=== PATIENT | female | born 1985 | race Caucasian/White ===

== ENCOUNTER 2017-08-02 00:10 | Emergency (ER) | payer OTHER ==
[2017-08-02 00:45] LABS: Urine Blood 1+ (NEG); Urine Glucose TRACE (NEG); Urine Protein 1+ (NEG)
[2017-08-02 01:01] LABS: Absolute Lymphocytes (CBC) 1.8 K/uL (0.7-4.9); Absolute Monocytes 0.9 K/uL (0.1-1.3); Absolute Neutrophil 8.1 K/uL (1.8-8.0); Basophils % 0.4 % (0-1.3); Hematocrit 40.5 % (36.0-45.0); Lymphocytes % 16.7 % (15.3-44.8); MCH 29.9 pg (27.0-35.0); MCV 90.6 fL (80-100); MPV 9.1 fL (7.6-11.3); Monocytes % 8.5 % (3.3-12.3); RBC Red Blood Cell Count 4.47 M/uL (3.86-4.86)
[2017-08-02 01:07] LABS: Potassium 3.9 mEq/L (3.6-5.0)
[2017-08-02 01:13] LABS: Urine Culture Reflex Order REFLEXED
[2017-08-02] MEDS ORDERED: CEFTRIAXONE/SWI 1gm 1 GM/10 ML SYR ONE (01:13)
[2017-08-02] MEDS ORDERED: ONDANSETRON 4 MG/2 ML VIAL ONE (01:13)
[2017-08-02] MEDS ORDERED: KETOROLAC 30 MG/ML INJ ONE (01:13)
[2017-08-02] MEDS ORDERED: MORPHINE 4 MG/ML SYR ONE (01:13)
[2017-08-02 01:14] LABS: Albumin 4.4 g/dL (3.2-5.5); Bilirubin Direct 0.1 mg/dL (0-0.2); Bilirubin Total 0.6 mg/dL (0.3-1.2); Protein, Total 7.3 g/dL (6.0-8.3)
[2017-08-02] MEDS ORDERED: NA CHLORIDE 0.9% 1,000 ML ONE (01:14)
[2017-08-02 01:17] LABS: Urine Bacteria <20 /HPF (<20)
--- NOTE | 2017-08-02 01:44 | ER ---
Nurse's Notes [facility] Name: Meghan Osorio Age: 32 yrs Sex: Female : 1985 Arrival Date: 08/02/2017 Time: 00:14 Bed 5 Private MD: Diagnosis: Cystitis;Hydronephrosis with renal and ureteral calculous obstruction Presentation: 08/02 00:23 Presenting complaint: Patient states: that at 1800 she started to have right lower back fc pain that radiates around to her right lower abd. Also having decreased urine output. Transition of care: patient was not received from another setting of care. Onset of symptoms was August 01, 2017 at 18:00. Initial Sepsis Screen: Does the patient meet any 2 criteria? No. Patient's initial sepsis screen is negative. Does the patient have a suspected source of infection? No. Patient's initial sepsis screen is negative. Care prior to arrival: Medication(s) given: AZO at 1900. 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 - Social history:: Smoking status: Patient/guardian denies using tobacco, Patient/guardian denies using alcohol, street drugs. - Family history:: not pertinent. Screenin:26 Abuse screen: Denies threats or abuse. Nutritional screening: No deficits noted. fc Tuberculosis screening: No symptoms or risk factors identified. Fall Risk None identified. Assessment: 00:30 General: Appears in no apparent distress. uncomfortable, Behavior is calm, cooperative, tl2 appropriate for age. General: pt states that she has been taking AZOs today. Pain: Complains of pain in right flank Pain radiates to right lower quadrant Pain currently is 6 out of 10 on a pain scale. Quality of pain is described as sharp. Neuro: Level of Consciousness is awake, alert, obeys commands, Oriented to person, place, time, situation. Cardiovascular: Denies chest pain. Respiratory: Airway is patent Respiratory effort is even, unlabored, Respiratory pattern is regular, symmetrical. GI: No signs and/or symptoms were reported involving the gastrointestinal system. : Denies burning with urination, urinary frequency. Derm: Skin is pink, warm \T\ dry. 01:20 Reassessment: Patient appears in no apparent distress at this time. Patient and/or tl2 family updated on plan of care and expected duration. Pain level reassessed. Patient is alert, oriented x 3, equal unlabored respirations, skin warm/dry/pink. 02:03 Reassessment: Patient appears in no apparent distress at this time. Patient and/or tl2 family updated on plan of care and expected duration. Pain level reassessed. Patient is alert, oriented x 3, equal unlabored respirations, skin warm/dry/pink. Pt states pain has improved, rates pain at 3 dull pain in back. MD will come speak to pt before discharge Patient states feeling better. 02:19 Reassessment: Patient appears in no apparent distress at this time. Patient and/or tl2 family updated on plan of care and expected duration. Pain level reassessed. Patient is alert, oriented x 3, equal unlabored respirations, skin warm/dry/pink. Pt verbalized understanding of discharge instructions, need for follow up and prescription usage. Vital Signs: 00:25 BP 125 / 76; Pulse 86; Resp 18; Temp 98.2(O); Pulse Ox 99% on R/A; Weight 110.68 kg fc (R); Height 5 ft. 2 in. (157.48 cm) (R); Pain 3/10; 01:20 BP 115 / 70; Pulse 81; Resp 20; Pulse Ox 99% on R/A; tl2 02:03 BP 115 / 67; Pulse 60; Resp 18; Pulse Ox 100% on R/A; Pain 3/10; tl2 00:25 Body Mass Index 44.63 (110.68 kg, 157.48 cm) ED Course: 00:14 Patient arrived in ED. am2 00:25 Triage completed. fc 00:25 Arm band placed on Patient placed in an exam room, on a stretcher. fc 00:26 Patient has correct armband on for positive identification. Placed in gown. Bed in low fc position. Call light in reach. 00:26 No provider procedures requiring assistance completed. fc 00:27 David Goldman MD is Attending Physician. michael 00:28 Halle Blevins RN is Primary Nurse. tl2 00:30 Inserted saline lock: 20 gauge in left antecubital area, using aseptic technique. Blood tl2 collected. 00:49 CT Stone Protocol In Process Unspecified. EDMS 01:43 Karli Pereira MD is Referral Physician. michael 01:48 CT completed. Patient tolerated procedure well. Patient moved to ME via wheelchair. Patient moved back from ME. 02:19 IV discontinued, intact, bleeding controlled, No redness/swelling at site. Pressure tl2 dressing applied. Administered Medications: 01:18 Drug: Rocephin - (cefTRIAXone) 1 grams Route: IVPB; Infused Over: 30 mins; Site: left tl2 antecubital; 02:03 Follow up: IV Status: Completed infusion tl2 01:18 Drug: TORadol 30 mg Route: IVP; Site: left antecubital; tl2 02:03 Follow up: Response: No adverse reaction; Pain is decreased tl2 01:19 Drug: morphine 4 mg Route: IVP; Rate: bolus; Infused Over: 2 mins; Site: left tl2 antecubital; 02:03 Follow up: Response: No adverse reaction; Pain is decreased tl2 01:19 Drug: Zofran 4 mg Route: IVP; Rate: bolus; Infused Over: 2 mins; Site: left antecubital;tl2 02:03 Follow up: Response: No adverse reaction tl2 01:19 Drug: NS 0.9% 1000 ml Route: IV; Rate: 1 bolus; Site: left antecubital; tl2 02:03 Follow up: IV Status: Completed infusion; IV Intake: 1000ml tl2 02:02 Drug: Flomax 0.4 mg Route: PO; tl2 02:21 Follow up: Response: No adverse reaction tl2 02:03 Drug: Cipro 500 mg Route: PO; tl2 02:21 Follow up: Response: No adverse reaction tl2 Intake: 02:03 IV: 1000ml; Total: 1000ml. tl2 Outcome: 01:43 Discharge ordered by . michael 02:19 Discharged to home ambulatory, with family. tl2 02:19 Condition: stable 02:19 Discharge instructions given to patient, Instructed on discharge instructions, follow up and referral plans. medication usage, Demonstrated understanding of instructions, follow-up care, medications, Prescriptions given X 4. 02:31 Patient left the ED. tl2 Signatures: Dispatcher [employer] EDDavid Gustafson MD MD cha Hagler, Ervin eh Chretien, Felicia RN RN Halle Blevins RN RN tl2 Jessica Espitia
--- NOTE | 2017-08-02 01:44 | EDPHYS ---
Physician Documentation [facility] Name: Meghan Osorio Age: 32 yrs Sex: Female : 1985 Arrival Date: 08/02/2017 Time: 00:14 Bed 5 Private MD: ED Physician David Goldman HPI: 08/02 00:43 This 32 yrs old Female presents to ER via Ambulatory with complaints of Flank michael Pain - right side rad to back. 00:43 The patient complains of pain in the right mid back and right low back. The pain michael radiates to the right mid back and right low back. Onset: The symptoms/episode began/occurred yesterday. Modifying factors: The symptoms are alleviated by nothing. the symptoms are aggravated by nothing. Associated signs and symptoms: The patient has no apparent associated signs or symptoms. Severity of pain: At its worst the pain was moderate in the emergency department the pain is unchanged. The patient has not experienced similar symptoms in the past. 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 - Social history:: Smoking status: Patient/guardian denies using tobacco, Patient/guardian denies using alcohol, street drugs. - Family history:: not pertinent. ROS: 00:43 Constitutional: Negative for fever, chills, and weight loss, Eyes: Negative for injury, michael pain, redness, and discharge, ENT: Negative for injury, pain, and discharge, Neck: Negative for injury, pain, and swelling, Cardiovascular: Negative for chest pain, palpitations, and edema, Respiratory: Negative for shortness of breath, cough, wheezing, and pleuritic chest pain, Back: Negative for injury and pain, : Negative for injury, bleeding, discharge, and swelling, MS/Extremity: Negative for injury and deformity, Skin: Negative for injury, rash, and discoloration, Neuro: Negative for headache, weakness, numbness, tingling, and seizure, Psych: Negative for depression, anxiety, suicide ideation, homicidal ideation, and hallucinations, Allergy/Immunology: Negative for hives, rash, and allergies, Endocrine: Negative for neck swelling, polydipsia, polyuria, polyphagia, and marked weight changes, Hematologic/Lymphatic: Negative for swollen nodes, abnormal bleeding, and unusual bruising. 00:43 Abdomen/GI: Positive for abdominal pain, of the posterior aspect of right lateral abdomen and right lower quadrant. Exam: 00:43 Constitutional: This is a well developed, well nourished patient who is awake, alert, michael and in no acute distress. Head/Face: Normocephalic, atraumatic. Eyes: Pupils equal round and reactive to light, extra-ocular motions intact. Lids and lashes normal. Conjunctiva and sclera are non-icteric and not injected. Cornea within normal limits. Periorbital areas with no swelling, redness, or edema. ENT: Nares patent. No nasal discharge, no septal abnormalities noted. Tympanic membranes are normal and external auditory canals are clear. Oropharynx with no redness, swelling, or masses, exudates, or evidence of obstruction, uvula midline. Mucous membranes moist. Neck: Trachea midline, no thyromegaly or masses palpated, and no cervical lymphadenopathy. Supple, full range of motion without nuchal rigidity, or vertebral point tenderness. No Meningismus. Chest/axilla: Normal chest wall appearance and motion. Nontender with no deformity. No lesions are appreciated. Cardiovascular: Regular rate and rhythm with a normal S1 and S2. No gallops, murmurs, or rubs. Normal PMI, no JVD. No pulse deficits. Respiratory: Lungs have equal breath sounds bilaterally, clear to auscultation and percussion. No rales, rhonchi or wheezes noted. No increased work of breathing, no retractions or nasal flaring. Abdomen/GI: Soft, non-tender, with normal bowel sounds. No distension or tympany. No guarding or rebound. No evidence of tenderness throughout. Back: No spinal tenderness. No costovertebral tenderness. Full range of motion. Skin: Warm, dry with normal turgor. Normal color with no rashes, no lesions, and no evidence of cellulitis. MS/ Extremity: Pulses equal, no cyanosis. Neurovascular intact. Full, normal range of motion. Neuro: Awake and alert, GCS 15, oriented to person, place, time, and situation. Cranial nerves II-XII grossly intact. Motor strength 5/5 in all extremities. Sensory grossly intact. Cerebellar exam normal. Normal gait. Psych: Awake, alert, with orientation to person, place and time. Behavior, mood, and affect are within normal limits. Vital Signs: 00:25 BP 125 / 76; Pulse 86; Resp 18; Temp 98.2(O); Pulse Ox 99% on R/A; Weight 110.68 kg (R); Height 5 ft. 2 in. (157.48 cm) (R); Pain 3/10; 01:20 BP 115 / 70; Pulse 81; Resp 20; Pulse Ox 99% on R/A; tl2 02:03 BP 115 / 67; Pulse 60; Resp 18; Pulse Ox 100% on R/A; Pain 3/10; tl2 00:25 Body Mass Index 44.63 (110.68 kg, 157.48 cm) MDM: 00:27 Patient medically screened. [facility] 08/02 00:27 Order name: Amylase, Serum; Complete Time: 08/02 00:27 Order name: Basic Metabolic Panel; Complete Time: 08/02 00:27 Order name: CBC with Diff; Complete Time: 08/02 00:27 Order name: Creatinine for Radiology; Complete Time: 08/02 00:27 Order name: Hepatic Function; Complete Time: 08/02 00:27 Order name: Lipase; Complete Time: 08/02 00:27 Order name: Urine Microscopic Only; Complete Time: 08/02 00:27 Order name: CT Stone Protocol 08/02 00:43 Order name: Urine Dipstick--Ancillary (enter results); Complete Time: : eb 08/02 00:43 Order name: Urine --Ancillary (enter results) 08/02 00:44 Order name: Urine --Ancillary; Complete Time: : EDMS 08/02 00:45 Order name: Urine Culture [facility] 08/02 00:27 Order name: IV Saline Lock; Complete Time: 00:28 08/02 00:27 Order name: Labs collected and sent; Complete Time: 00: 08/02 00:27 Order name: Urine Dipstick-Ancillary (obtain specimen); Complete Time: 00:43 08/02 00:31 Order name: Urine Test (obtain specimen); Complete Time: 00:43 michael Administered Medications: 01:18 Drug: Rocephin - (cefTRIAXone) 1 grams Route: IVPB; Infused Over: 30 mins; Site: left tl2 antecubital; 02:03 Follow up: IV Status: Completed infusion tl2 01:18 Drug: TORadol 30 mg Route: IVP; Site: left antecubital; tl2 02:03 Follow up: Response: No adverse reaction; Pain is decreased tl2 01:19 Drug: morphine 4 mg Route: IVP; Rate: bolus; Infused Over: 2 mins; Site: left tl2 antecubital; 02:03 Follow up: Response: No adverse reaction; Pain is decreased tl2 01:19 Drug: Zofran 4 mg Route: IVP; Rate: bolus; Infused Over: 2 mins; Site: left antecubital;tl2 02:03 Follow up: Response: No adverse reaction tl2 01:19 Drug: NS 0.9% 1000 ml Route: IV; Rate: 1 bolus; Site: left antecubital; tl2 02:03 Follow up: IV Status: Completed infusion; IV Intake: 1000ml tl2 02:02 Drug: Flomax 0.4 mg Route: PO; tl2 02:21 Follow up: Response: No adverse reaction tl2 02:03 Drug: Cipro 500 mg Route: PO; tl2 02:21 Follow up: Response: No adverse reaction tl2 Disposition: 08/02/17 01:43 Discharged to Home. Impression: Cystitis, Hydronephrosis with renal and ureteral calculous obstruction. - Condition is Stable. - Discharge Instructions: Dysuria, Kidney Stones, Kidney Stones, [id number], Hydronephrosis, Dietary Guidelines to Help Prevent Kidney Stones. - Prescriptions for Tylenol- Codeine #3 300-30 mg Oral Tablet - take 2 tablet by ORAL route every 6 hours As needed; 30 tablet. Zofran 4 mg Oral Tablet - take 1 tablet by ORAL route every 12 hours As needed; 20 tablet. Flomax 0.4 mg Oral Capsule, Sust. Release 24 hr - take 1 capsule by ORAL route once daily 1/2 hour following the same meal each day; 30 capsule. Cipro 500 mg Oral Tablet - take 1 tablet by ORAL route every 12 hours for 7 days; 14 tablet. - Medication Reconciliation Form, Thank You Letter, Antibiotic Education, Prescription Opioid Use, Work release form form. - Follow up: Private Physician; When: 2 - 3 days; Reason: Recheck today's complaints, Continuance of care, Re-evaluation by your physician. Follow up: Karli Pereira; When: 2 - 3 days; Reason: Recheck today's complaints, Continuance of care, Re-evaluation by your physician. - Problem is new. - Symptoms have improved. Signatures: Dispatcher [employer] EDDavid Gustafson MD MD cha Chretien, Felicia RN RN fc Halle Blevins RN RN tl2 Corrections: (The following items were deleted from the chart) 02:31 01:43 08/02/2017 01:43 Discharged to Home. Impression: Cystitis; Hydronephrosis with tl2 renal and ureteral calculous obstruction. Condition is Stable. Discharge Instructions: Dysuria, Kidney Stones, Kidney Stones, [id number], Hydronephrosis, Dietary Guidelines to Help Prevent Kidney Stones. Prescriptions for Tylenol-Codeine #3 300-30 mg Oral Tablet - take 2 tablet by ORAL route every 6 hours As needed; 30 tablet, Zofran 4 mg Oral Tablet - take 1 tablet by ORAL route every 12 hours As needed; 20 tablet, Flomax 0.4 mg Oral Capsule, Sust. Release 24 hr - take 1 capsule by ORAL route once daily 1/2 hour following the same meal each day; 30 capsule, Cipro 500 mg Oral Tablet - take 1 tablet by ORAL route every 12 hours for 7 days; 14 tablet. and Forms are Medication Reconciliation Form, Thank You Letter, Antibiotic Education, Prescription Opioid Use. Follow up: Private Physician; When: 2 - 3 days; Reason: Recheck today's complaints, Continuance of care, Re-evaluation by your physician. Follow up: Karli Pereira; When: 2 - 3 days; Reason: Recheck today's complaints, Continuance of care, Re-evaluation by your physician. Problem is new. Symptoms have improved. michael
[2017-08-02] MEDS ORDERED: TAMSULOSIN 0.4 MG SR CAP ONE (02:01)
[2017-08-02] MEDS ORDERED: CIPROFLOXACIN HCL 500 MG TAB ONE (02:01)
--- NOTE | 2017-08-02 08:18 | RAD REPORT ---
EXAM DESCRIPTION: CT - Stone Protocol - 08/02/2017 6:38 am CLINICAL HISTORY: Abdominal pain. Right flank pain COMPARISON: None. TECHNIQUE: Computed axial tomography of the abdomen pelvis was obtained without oral or IV contrast. Lack of IV and oral contrast limits evaluation of solid organs, bowel, and vessels. Coronal reformat tommy images were obtained and reviewed. A preliminary report was generated by [employer] and reviewed prior to this dictation All CT scans are performed using dose optimization technique as appropriate and may include automated exposure control or mA/KV adjustment according to patient size. FINDINGS: Multiple, bilateral small renal calculi are present. Mild to moderate right hydronephrosis is seen. The right ureter is dilated. Within the distal right ureter is a 4 millimeter calculus Houn sfield unit 1080. Left hydronephrosis is not seen. The liver, spleen, pancreas and adrenals appear grossly normal There is no evidence of diverticulitis. The appendix appears normal IMPRESSION: A 4 millimeter calculus distal right ureter resulting in mild to moderate right hydronep hrosis
== END 2017-08-02 02:31 | disposition home or self-care (01) ==
LOC: ER 00:10
DX: N30.90 Cystitis, unspecified without hematuria (principal); N13.2 Hydronephrosis with renal and ureteral calculous obstruction
CPT/HCPCS: 36415; 74176; 76377; 80048; 80076; 81003; 81015; 81025; 82150; 83690; 85025; 87086; 87088; 96361; 96365; 96375; 99284; J0696; J2405; J7030